=== PATIENT | male | born 1980 | race Caucasian/White ===

== ENCOUNTER 2018-01-08 09:35 | Emergency (ER) | payer SELFPAY ==
[2014-06-18 15:09] VITALS: Wt 67.1 kg
[~2018-01-08 09:35] MED LIST: AMPH30TA10 PO; CLIN300C99 PO; CLON-327 PO; FOLI-68 PO; LOR1 PO; MULT-1379 PO; NICO2LOZ70 BC; OXYGENHOME INH; PHEN100C82 PO; POTA20TA85 PO; THIA100T62 PO
[2018-01-08 09:40] VITALS: BP 123/95
[2018-01-08] MEDS ORDERED: APAP/HYDROCODONE 325/7.5 TAB PO ONE (10:10)
[2018-01-08] MEDS ORDERED: ACETAMINOPHEN 325 MG TAB PO ONE (10:10)
--- NOTE | 2018-01-08 10:11 | ER Report ---
History and Physical Time Seen By MD: 10:00 Hx. of Stated Complaint: LEFT WRIST PAIN AFTER SLIPPING ON ICE YESTERDAY HPI/ROS CHIEF COMPLAINT: Left hand injury HISTORY OF PRESENT ILLNESS: Just prior to arrival patient was walking and slipped on ice falling on his nondominant left hand. He developed left wrist pain and swelling. He denies left elbow pain shoulder pain hitting his head or any other injury or pain. Pain is moderate with swallowing at posterior left wrist. No prior injuries, medical problems, allergies. Patient vapes daily. REVIEW OF SYSTEMS: Constitutional: No fever, no chills. Eyes: No discharge. ENT: No sore throat. Cardiovascular: No chest pain, no palpitations. Respiratory: No cough, no shortness of breath. Gastrointestinal: No abdominal pain, no vomiting. Genitourinary: No hematuria. Musculoskeletal: No back pain. Skin: No rashes. Neurological: No headache. Remainder of the 14 system rev: Yes Allergies: Coded Allergies: No Known Drug Allergies (Unverified , 08/24/16) Home Meds Active Scripts Hydrocodone Bit/Acetaminophen (NORCO 5-325 TABLET) 1 Each Tablet, 1 EACH PO Q6H for Nausea, #15 TAB Prov:GIACOMO REED MD 01/08/18 Discontinued Reported Medications Nicotine Polacrilex (NICORETTE) 2 Mg Lozenge, 2 MG BC Q1-2H PRN for NICOTINE REPLACEMENT, LOZENGE 08/28/16 Thiamine Hcl (THIAMINE HCL) 100 Mg Tablet, 100 MG PO QDAY 08/28/16 Multivits,Th W-Fe,Other Min (THERA-M) 1 Each Tablet, 1 EACH PO QDAY 08/28/16 Folic Acid (FOLIC ACID) 1 Mg Tablet, 1 MG PO QDAY, TAB 08/28/16 Hx Smoking: Yes Smoking Status: Current: Every Day Smoker Exposure to Second Hand Smoke?: Yes Hx Substance Use Disorder: Yes Hx Alcohol Use: Yes Constitutional Vital Sign - Last 24 Hours 01/08/18 09:40 Temp 99.0 Pulse 96 Resp 20 B/P (MAP) 123/95 Pulse Ox 95 O2 Delivery Room Air Physical Exam General Appearance: The patient is alert, has no immediate need for airway protection and no current signs of toxicity. [ ] Eyes: Pupils equal and round no injection. Respiratory: Chest is non tender, lungs are clear to auscultation. Cardiac: regular rate and rhythm Musculoskeletal: Extremities have full range of motion and are non tender. with exception of left wrist; posterior edema and ttp at distal medial l wrist. NVID, ROM thumb diminished due to pain; from fingers. Skin: No rashes or lesions. DIFFERENTIAL DIAGNOSIS: After history and physical exam differential diagnosis was considered for wrist fracture, scaphoid fracture, scapholunate dissociation, other proximal or distal injury Medical Decision Making ED Course/Re-evaluation ED Course Pt fell on non dominant left hand when slipping on ice. Xray with comminuted intraarticular l dist rad fx but with min displacement. I performed hematoma block with 1cc blood return and sig relief. Sugar tong placed; I evaluated; good positioning. Consulted Dr. Hartmann for f/u. D/c with SRP's. Procedure Procedure: Splint placement. A sugar tong splint was applied to left forearm. After application of the splint I returned and re-examined the patient. The splint was adequately immobilizing the joint and distal to the splint the patient's circulation and sensation was intact. Procedure: Arthrocentesis. After verbal informed consent from patient explaining the risks including infection and bleeding a hematoma block was performed at left distal radius. The arthrocentesis was performed after the patient was prepped and draped in the usual fashion. The joint was anesthetized with 1% lidocaine. Approximately 1cc of blood fluid was obtained. There were no complications. The procedure was performed by myself. Decision to Disposition Date: Jan 08, 2018 Decision to Disposition Time: 11:25 Depart Departure Latest Vital Signs Vital Signs Date Time Temp Pulse Resp B/P (MAP) Pulse Ox O2 Delivery O2 Flow Rate FiO2 01/08/18 09:40 99.0 96 20 123/95 95 Room Air Impression: Primary Impression: Distal radius fracture, left Additional Impression: Fracture of ulnar styloid Condition: Improved Disposition: HOME OR SELF-CARE Referrals: BC HARTMANN MD 2 Days call today to arrange follow up with orthopedics on saturday for re-evaluation New Scripts Hydrocodone Bit/Acetaminophen (NORCO 5-325 TABLET) 1 Each Tablet 1 EACH PO Q6H for Nausea, #15 TAB Prov: GIACOMO REED MD 01/08/18 Patient Instructions: Wrist Fracture in Adults (ED) Additional Instructions: Return for uncontrolled pain, new numbness, concerning swelling, or any concerns. Follow up as we discussed. Problem Qualifiers Primary Impression: Distal radius fracture, left Encounter type: initial encounter Fracture type: closed Fracture morphology: other intra-articular Qualified Codes: S52.572A - Other intraarticular fracture of lower end of left radius, initial encounter for closed fracture Additional Impression: Fracture of ulnar styloid Encounter type: initial encounter Fracture type: closed Fracture alignment: nondisplaced Laterality: left Qualified Codes: S52.615A - Nondisplaced fracture of left ulna styloid process, initial encounter for closed fracture GIACOMO REED MD Jan 08, 2018 10:11
--- NOTE | 2018-01-08 10:20 | RADIOLOGY IMAGING REPORT ---
FACILITY: [facility] PATIENT NAME: Jordan Henderson : 1980 MR: [id number] V: [id number] EXAM DATE: ORDERING PHYSICIAN: GIACOMO REED TECHNOLOGIST: Location: [facility] - [place] Patient: Jordan Henderson : 1980 Visit/Account:[id number] Date of Sevice: 01/08/2018 Exam type: WRIST LEFT MIN 3 VIEW History: Fell on ice this morning, left wrist pain, worse along lateral aspect near thumb Comparison: None. Findings: There is a tiny avulsion fracture fragment of the ulnar styloid. Also noted is a slightly comminuted intra-articular fracture through the distal left radius with slight dorsal displacement of the dorsa l fracture fragment. There is extensive soft tissue swelling about the left wrist IMPRESSION: 1. Tiny avulsion fracture fragment of the left ulnar styloid Slightly comminuted intra-articular fracture to the distal left radius with slight dorsal displacemen t of the dorsal fracture fragment Report Dictated By: Samantha Robledo MD at 01/08/2018 10:14 AM Report E-Signed By: Samantha Robledo MD at 01/08/2018 10:16 AM WSN:[id number]
[2018-01-08] MEDS ORDERED: HYDR-653 PO (11:01)
== END 2018-01-08 11:40 | disposition home or self-care (01) ==
LOC: ER 09:39
DX: S52.572A Other intraarticular fracture of lower end of left radius, initial encounter for closed fracture (principal); S52.615A Nondisplaced fracture of left ulna styloid process, initial encounter for closed fracture; W00.0XXA Fall on same level due to ice and snow, initial encounter
CPT/HCPCS: 99284; A4565

== ENCOUNTER 2018-06-01 17:52 | Inpatient (IN) | payer SELFPAY ==
[~2018-06-01] VITALS: Ht 165.1 cm; Wt 67.6 kg
[~2018-06-01 17:52] MED LIST changes: +HYDR-653 PO
[2018-06-01] MEDS ORDERED: THIAMINE HCL(*) 200 MG/2 ML IN 100 MG, FOLIC ACID(*) 50 MG/10 ML INJ 1 MG, MULTIVITAMIN... IV ONE (18:23)
--- NOTE | 2018-06-01 18:23 | ER Report ---
History and Physical Time Seen By MD: 18:19 HPI/ROS CHIEF COMPLAINT: Alcohol dependence HISTORY OF PRESENT ILLNESS: 37-year-old male presents ambulatory to the ER with his significant other, requesting alcohol detox. Patient reports returning from a in [place], where his significant other's father of alcohol related disease. Patient is very concerned that he discovered from alcoholism. If he does not stop drinking soon. He's requesting medical detox. Patient admits to eye opening alcohol and blackouts. Review of patient's previous ER records shows 2 previous visits with significantly high alcohol levels. Patient's been admitted to [facility] on multiple previous occasions for detox REVIEW OF SYSTEMS: Respiratory: No cough, no dyspnea. Cardiovascular: No chest pain, no palpitations. Gastrointestinal: No vomiting, no abdominal pain. Musculoskeletal: No back pain. Allergies: Coded Allergies: No Known Drug Allergies (Unverified , 06/01/18) Home Meds Discontinued Scripts Hydrocodone Bit/Acetaminophen (NORCO 5-325 TABLET) 1 Each Tablet, 1 EACH PO Q6H for Nausea, #15 TAB Prov:GIACOMO REED MD 01/08/18 Reviewed Nurses Notes: Yes Old Medical Records Reviewed: Yes Hx Smoking: Yes Smoking Status: Current: Every Day Smoker Exposure to Second Hand Smoke?: Yes Hx Substance Use Disorder: Yes Hx Alcohol Use: Yes Constitutional Vital Sign - Last 24 Hours 06/01/18 06/01/18 06/01/18 06/01/18 18:17 18:20 18:22 18:52 Temp 98.7 Pulse 109 106 99 Resp 18 B/P (MAP) 127/71 (89) 127/71 Pulse Ox 90 95 89 O2 Delivery Room Air 06/01/18 06/01/18 06/01/18 06/01/18 18:59 19:00 19:22 19:27 Pulse 103 100 B/P (MAP) 107/81 (90) 98/72 (81) Pulse Ox 91 88 06/01/18 06/01/18 06/01/18 06/01/18 19:30 19:57 20:00 20:05 Pulse 106 115 B/P (MAP) 114/68 (83) 120/80 (93) Pulse Ox 91 90 Physical Exam General Appearance: The patient is alert, has no immediate need for airway protection and no current signs of toxicity. Eyes: Pupils equal and round no injection. Respiratory: Chest is non tender, lungs are clear to auscultation. Cardiac: regular rate and rhythm Gastrointestinal: Abdomen is soft and non tender, no masses, bowel sounds normal. Musculoskeletal: Neck: Neck is supple and non tender. Extremities have full range of motion and are non tender. Skin: No rashes or lesions. DIFFERENTIAL DIAGNOSIS: After history and physical exam differential diagnosis was considered for depression including functional and major depression, situational depression, medication side effect, drugs and alcohol abuse/alcohol dependence. Medical Decision Making Data Points Result Diagram: 06/01/18 1829 06/01/18 1829 Laboratory Hematology Test 06/01/18 18:29 06/01/18 20:28 Red Blood Count 4.44 M/uL (4.00-5.60) Mean Corpuscular Volume 105.4 fL (80.0-96.0) Mean Corpuscular Hemoglobin 35.5 pg (26.0-33.0) Mean Corpuscular Hemoglobin Concent 33.7 g/dL (32.0-36.0) Red Cell Distribution Width 15.0 % (11.5-14.5) Mean Platelet Volume 7.1 fL (7.2-11.1) Neutrophils (%) (Auto) 55.8 % (39.4-72.5) Lymphocytes (%) (Auto) 33.7 % (17.6-49.6) Monocytes (%) (Auto) 8.9 % (4.1-12.4) Eosinophils (%) (Auto) 0.4 % (0.4-6.7) Basophils (%) (Auto) 1.2 % (0.3-1.4) Nucleated RBC Relative Count (auto) 0.0 /100WBC Neutrophils # (Auto) 3.7 K/uL (2.0-7.4) Lymphocytes # (Auto) 2.2 K/uL (1.3-3.6) Monocytes # (Auto) 0.6 K/uL (0.3-1.0) Eosinophils # (Auto) 0.0 K/uL (0.0-0.5) Basophils # (Auto) 0.1 K/uL (0.0-0.1) Nucleated RBC Absolute Count (auto) 0.00 K/uL Sodium Level 142 mmol/L (137-145) Potassium Level 4.1 mmol/L (3.5-5.0) Chloride Level 101 mmol/L (98-107) Carbon Dioxide Level 25 mmol/L (22-30) Blood Urea Nitrogen 6 mg/dl (9-21) Creatinine 0.80 mg/dl (0.66-1.25) Glomerular Filtration Rate Calc > 60.0 Random Glucose 94 mg/dl (75-110) Calcium Level 8.9 mg/dl (8.4-10.2) Magnesium Level 2.0 mg/dl (1.7-2.2) Total Bilirubin 0.7 mg/dl (0.2-1.3) Aspartate Amino Transf (AST/SGOT) 268 U/L (0-35) Alanine Aminotransferase (ALT/SGPT) 99 U/L (0-56) Alkaline Phosphatase 137 U/L (0-126) Total Protein 8.7 g/dl (6.3-8.2) Albumin 4.9 g/dl (3.5-5.0) Salicylates Level < 10 mg/L Salicylate Last Dose Date unk Acetaminophen Level < 10 ug/ml Serum Alcohol 525 mg/dl Urine Color Yellow Urine Clarity Clear Urine pH 6.0 pH (4.8-9.5) Urine Specific [place] 1.011 Urine Protein 100 mg/dL (NEGATIVE) Urine Glucose (UA) Negative mg/dL (NEGATIVE) Urine Ketones 20 mg/dL (NEGATIVE) Urine Blood Small (NEGATIVE) Urine Nitrite Negative (NEGATIVE) Urine Bilirubin Negative (NEGATIVE) Urine Urobilinogen 2.0 mg/dL (0.2-1.9) Urine Leukocyte Esterase Negative (NEGATIVE) Urine RBC <1 /HPF (0-2/HPF) Urine WBC 3 /HPF (0-5/HPF) Urine Squamous Epithelial Cells Many /LPF (</=FEW) Urine Bacteria Negative /HPF (NONE-FEW) Urine Mucus Few /HPF (NONE-FEW) Urine Opiates Screen Negative Urine Barbiturates Screen Negative Ur Tricyclic Antidepressants Screen Negative Urine Phencyclidine Screen Negative Urine Amphetamines Screen Negative Urine Benzodiazepines Screen Negative Urine Cocaine Screen Negative Urine Cannabinoids Screen Negative Chemistry Test 06/01/18 18:29 06/01/18 20:28 White Blood Count 6.6 k/uL (4.5-11.0) Red Blood Count 4.44 M/uL (4.00-5.60) Hemoglobin 15.8 g/dL (14.0-18.0) Hematocrit 46.7 % (42.0-52.0) Mean Corpuscular Volume 105.4 fL (80.0-96.0) Mean Corpuscular Hemoglobin 35.5 pg (26.0-33.0) Mean Corpuscular Hemoglobin Concent 33.7 g/dL (32.0-36.0) Red Cell Distribution Width 15.0 % (11.5-14.5) Platelet Count 151 K/uL (150-450) Mean Platelet Volume 7.1 fL (7.2-11.1) Neutrophils (%) (Auto) 55.8 % (39.4-72.5) Lymphocytes (%) (Auto) 33.7 % (17.6-49.6) Monocytes (%) (Auto) 8.9 % (4.1-12.4) Eosinophils (%) (Auto) 0.4 % (0.4-6.7) Basophils (%) (Auto) 1.2 % (0.3-1.4) Nucleated RBC Relative Count (auto) 0.0 /100WBC Neutrophils # (Auto) 3.7 K/uL (2.0-7.4) Lymphocytes # (Auto) 2.2 K/uL (1.3-3.6) Monocytes # (Auto) 0.6 K/uL (0.3-1.0) Eosinophils # (Auto) 0.0 K/uL (0.0-0.5) Basophils # (Auto) 0.1 K/uL (0.0-0.1) Nucleated RBC Absolute Count (auto) 0.00 K/uL Glomerular Filtration Rate Calc > 60.0 Calcium Level 8.9 mg/dl (8.4-10.2) Magnesium Level 2.0 mg/dl (1.7-2.2) Total Bilirubin 0.7 mg/dl (0.2-1.3) Aspartate Amino Transf (AST/SGOT) 268 U/L (0-35) Alanine Aminotransferase (ALT/SGPT) 99 U/L (0-56) Alkaline Phosphatase 137 U/L (0-126) Total Protein 8.7 g/dl (6.3-8.2) Albumin 4.9 g/dl (3.5-5.0) Salicylates Level < 10 mg/L Salicylate Last Dose Date unk Acetaminophen Level < 10 ug/ml Serum Alcohol 525 mg/dl Urine Color Yellow Urine Clarity Clear Urine pH 6.0 pH (4.8-9.5) Urine Specific [place] 1.011 Urine Protein 100 mg/dL (NEGATIVE) Urine Glucose (UA) Negative mg/dL (NEGATIVE) Urine Ketones 20 mg/dL (NEGATIVE) Urine Blood Small (NEGATIVE) Urine Nitrite Negative (NEGATIVE) Urine Bilirubin Negative (NEGATIVE) Urine Urobilinogen 2.0 mg/dL (0.2-1.9) Urine Leukocyte Esterase Negative (NEGATIVE) Urine RBC <1 /HPF (0-2/HPF) Urine WBC 3 /HPF (0-5/HPF) Urine Squamous Epithelial Cells Many /LPF (</=FEW) Urine Bacteria Negative /HPF (NONE-FEW) Urine Mucus Few /HPF (NONE-FEW) Urine Opiates Screen Negative Urine Barbiturates Screen Negative Ur Tricyclic Antidepressants Screen Negative Urine Phencyclidine Screen Negative Urine Amphetamines Screen Negative Urine Benzodiazepines Screen Negative Urine Cocaine Screen Negative Urine Cannabinoids Screen Negative Toxicology Test 06/01/18 18:29 06/01/18 20:28 Salicylates Level < 10 mg/L Salicylate Last Dose Date unk Acetaminophen Level < 10 ug/ml Serum Alcohol 525 mg/dl Urine Opiates Screen Negative Urine Barbiturates Screen Negative Ur Tricyclic Antidepressants Screen Negative Urine Phencyclidine Screen Negative Urine Amphetamines Screen Negative Urine Benzodiazepines Screen Negative Urine Cocaine Screen Negative Urine Cannabinoids Screen Negative Urinalysis Test 06/01/18 20:28 Urine Color Yellow Urine Clarity Clear Urine pH 6.0 pH (4.8-9.5) Urine Specific [place] 1.011 Urine Protein 100 mg/dL (NEGATIVE) Urine Glucose (UA) Negative mg/dL (NEGATIVE) Urine Ketones 20 mg/dL (NEGATIVE) Urine Blood Small (NEGATIVE) Urine Nitrite Negative (NEGATIVE) Urine Bilirubin Negative (NEGATIVE) Urine Urobilinogen 2.0 mg/dL (0.2-1.9) Urine Leukocyte Esterase Negative (NEGATIVE) Urine RBC <1 /HPF (0-2/HPF) Urine WBC 3 /HPF (0-5/HPF) Urine Squamous Epithelial Cells Many /LPF (</=FEW) Urine Bacteria Negative /HPF (NONE-FEW) Urine Mucus Few /HPF (NONE-FEW) ED Course/Re-evaluation Clinical Indication for ER IV: Hydration, IV Access ED Course Patient was admitted to an examination room. H&P was done. The differential diagnosis was considered. Patient with significantly high alcohol 525. He has elevated MCV and mild elevation of his LFTs. On examination of his abdomen. There is trace hepatomegaly. Is no ascites. Patient is treated with IV banana bag. 06/01/2018 7:36:38 pm daya with Bonita Hernández nurse practitioner a behavioral health service, she advises patient be admitted to medical service with such a high blood alcohol level. 06/01/2018 8:58:57 pm is discussed with Dr. Ephraim Aguilar hospitalist on-call, who accepts the patient for medical detox Decision to Disposition Date: Jun 01, 2018 Decision to Disposition Time: 19:36 Depart Departure Latest Vital Signs Vital Signs Date Time Temp Pulse Resp B/P (MAP) Pulse Ox O2 Delivery O2 Flow Rate FiO2 06/01/18 20:05 115 90 06/01/18 20:00 120/80 (93) 06/01/18 18:20 98.7 18 Room Air Impression: Primary Impression: Alcohol dependence Additional Impressions: Alcoholic hepatitis Elevated MCV Condition: Improved Disposition: Admitted from ER New Scripts No Active Prescriptions or Reported Meds Problem Qualifiers Primary Impression: Alcohol dependence Substance use status: uncomplicated Qualified Codes: F10.20 - Alcohol dependence, uncomplicated Additional Impressions: Alcoholic hepatitis Ascites presence: unspecified Qualified Codes: K70.10 - Alcoholic hepatitis without ascites ZACH REYES DO Jun 01, 2018 18:23
[2018-06-01 18:37] LABS: PLATELET COUNT, AUTOMATED 151 K/uL (150-450)
[2018-06-01] MEDS ORDERED: NS(*) 0.9% 1000 ML BAG 1,000 ML IV ONE (20:15)
[2018-06-01] MEDS ORDERED: DIAZEPAM 10 MG TAB PO PRN (22:00)
[2018-06-01] MEDS ORDERED: INFLUENZA VIRUS VAC 0.5ML SYR IM ONLY ONE (22:00)
[2018-06-01 22:20] VITALS: BP 127/78
--- NOTE | 2018-06-01 22:39 | History & Physical ---
History of Present Illness Chief Complaint "I would like to detox" History of Present Illness 37yo male with PMHx significant for chronic alcoholism. He has been drinking hard liquor ("a pint or more" everyday) for several years. He has gone thro ugh/detox/withdrawal on at least three occasions in the past few years. He has had seizures at least three times as well. He states he is now committed to remain abstinent after watching his [id number] recently due to substance abuse. He denies any other illicit drugs. He does "vape" every day. His last drink of alcohol was "around 1:00 today". His BAL was 525 in the ER. The rest of his drug screen was negative. He was recommended for admission. History Problems: (1) Alcohol abuse Status: Chronic (2) Seizure Status: Acute (3) Alcoholic hepatitis Status: Chronic (4) History of oral surgery Status: Chronic (5) Distal radius fracture, left Status: Resolved (6) Fracture of ulnar styloid Status: Resolved Home Meds Discontinued Scripts Hydrocodone Bit/Acetaminophen (NORCO 5-325 TABLET) 1 Each Tablet, 1 EACH PO Q6H for Nausea, #15 TAB Prov:GIACOMO REED MD 01/08/18 Allergies: Coded Allergies: No Known Drug Allergies (Unverified , 06/01/18) Other Social/Family Hx He reports being engaged to be . 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 Hx Smoking: Yes Smoking Status: Current: Every Day Smoker Exposure to Second Hand Smoke?: Yes Caffeine Intake: Coffee Caffeine/Cups Per Day: 4-6 Hx Alcohol Use: Yes Hx Substance Use Disorder: Yes Social Drug Use: Former Social Drugs: Marijuana Review of Systems Constitutional: No Fever, No Chills Cardiovascular: No Chest Pain Respiratory: No Shortness of Breath Gastrointestinal: Nausea, Vomiting; No Diarrhea, No Hematemesis, No Hematochezia, No Melena Exam Vital Signs Vital Signs Date Time Temp Pulse Resp B/P (MAP) Pulse Ox O2 Delivery O2 Flow Rate FiO2 06/01/18 20:00 120/80 (93) 06/01/18 19:57 106 91 06/01/18 18:20 98.7 18 Room Air General Appearance: Alert, Awake, Other (no tremor noted at this time) Neuro: No Gross deficits Eyes: PERRLA ENT: Oropharynx Clear (dentition in reasonable repair) Neck: No Masses Cardiovascular: Regular Rate and Rhythm, No Edema, No JVD Respiratory: Clear to Auscultation Chest: No Tenderness GI: Abd Soft and Non-Tender (liver edge palpable several centimeters below costal margin) : No CVA Tenderness Lymph: No Adenopathy Extremities: Warm, Perfused Integumentary: Skin Intact without Lesion / Mass Psych: Alert & Oriented X3 Medical Decision Making Data Points Result Diagram: 06/01/18182806/01/181828 Item Value Date Time Albumin 4.9 g/dl 06/01/181828 Total Protein 8.7 g/dl H 06/01/181828 Alkaline Phosphatase 137 U/L H 06/01/181828 Alanine Aminotransferase (ALT/SGPT) 99 U/L H 06/01/18 182 Aspartate Amino Transf (AST/SGOT) 268 U/L H 06/01/181828 Total Bilirubin 0.7 mg/dl 06/01/18 182 Magnesium Level 2.0 mg/dl 06/01/18 1829 Calcium Level 8.9 mg/dl 06/01/18 182 Urine Mucus Few /HPF 06/01/182027 Urine Bacteria Negative /HPF 06/01/182027 Urine Squamous Epithelial Cells Many /LPF H 06/01/182027 Urine WBC 3 /HPF 06/01/182027 Urine RBC <1 /HPF 06/01/182027 Urine Leukocyte Esterase Negative 06/01/182027 Urine Urobilinogen 2.0 mg/dL 06/01/182027 Urine Bilirubin Negative 06/01/182027 Urine Nitrite Negative 06/01/182027 Urine Blood Small 06/01/182027 Urine Ketones 20 mg/dL H 06/01/182027 Urine Glucose (UA) Negative mg/dL 06/01/182027 Urine Protein 100 mg/dL 06/01/182027 Urine Specific [place] 1.011 06/01/182027 Urine pH 6.0 pH 06/01/182027 Urine Clarity Clear 06/01/182027 Urine Color Yellow 06/01/182027 Assessment and Plan Problems: (1) Alcohol abuse Status: Chronic Assessment & Plan: He has now stated he wishes to stop completely and remain abstinent. Will admit for alcohol detoxification. Place on CIWA protocol and use diazepam as needed for symptoms. Place on seizure precautions as he has had withdrawal seizures in the past. Will also give thiamine and folate supplementation. Watch closely. Will have psychiatry/substance abuse counselor see as well. (2) Alcohol withdrawal seizure Status: Resolved Assessment & Plan: He has had seizures during withdrawal on at least three occasions. Will watch closely/use seizure precautions. Cover with diazepam for withdrawal symptoms as needed. (3) Alcoholic hepatitis Status: Chronic Assessment & Plan: He has had persistent elevation of his LFTs for several years most likely due to excessive alcohol use. Will monitor. Venous Thromboembolism Antithrombotics Is Pt On Any Antithrombotics?: Yes Exam Sepsis Risk: No Definite Risk Problem Qualifiers (1) Alcoholic hepatitis: Ascites presence: unspecified Qualified Codes: K70.10 - Alcoholic hepatitis without ascites LORENA ANDERSEN MD Jun 01, 2018 22:39
[2018-06-02] VITALS (11 sets, daily range): BP systolic 90–129; BP diastolic 69–96; Ht 165.1 cm; Wt 67.6 kg
[2018-06-02] MEDS ORDERED: MELATONIN 3 MG TAB PO PRN (00:35)
[2018-06-02] MEDS: NS(*) 0.9% 1000 ML BAG 1,000 ML IV PRN ×3 (03:21→23:42)
[2018-06-02 05:28] LABS: PLATELET COUNT, AUTOMATED 115 K/uL (150-450)
[2018-06-02] MEDS: ENOXAPARIN 40 MG/0.4ML SYR SC SCH (08:27)
[2018-06-02] MEDS: FOLIC ACID 1 MG TAB PO SCH (08:27)
[2018-06-02] MEDS: THIAMINE HCL 200 MG/2 ML INJ IVP SCH (08:35)
[2018-06-02] MEDS: DIAZEPAM 10 MG TAB PO PRN ×3 (12:13→18:37)
--- NOTE | 2018-06-02 12:37 | Hospitalist Progress Note ---
Subjective Progress Notes Subjective He was admitted for alcohol withdraw. He feels "shaky". He had no acute events overnight. Patient Complains of: Cardiovascular: No: Chest Pain Respiratory: No: Shortness of Breath Physical Exam Vital Signs Date Time Temp Pulse Resp B/P (MAP) Pulse Ox O2 Delivery O2 Flow Rate FiO2 06/02/18 12:05 99.0 91 18 121/82 (95) 95 Room Air 06/02/18 08:30 0.5 Intake and Output 06/02/18 00:59 Intake Total 1000 ml Balance 1000 ml IV Total 1000 ml General Appearance: Alert, Awake Neuro: Other (tremulous) Cardiovascular: Regular Rate and Rhythm Respiratory: No Respiratory Distress, Clear to Auscultation Psych: Alert & Oriented X3, Appropriate Mood & Affect Result Diagram: 06/02/1851406/02/18514 Assessment and Plan Problems: (1) Alcohol abuse Status: Chronic Assessment & Plan: He has now stated he wishes to stop completely and remain abstinent. Will admit for alcohol detoxification. Place on CIWA protocol and use diazepam as needed for symptoms. Place on seizure precautions as he has had withdrawal seizures in the past. Will also give thiamine and folate supple mentation. Watch closely. Will have psychiatry/substance abuse counselor see as well. (2) Alcohol withdrawal seizure Status: Resolved Assessment & Plan: He has had seizures during withdrawal on at least three occasions. Will watch closely/use seizure precautions. Cover with diazepam for withdrawal symptoms as needed. (3) Alcoholic hepatitis Status: Chronic Assessment & Plan: He has had persistent elevation of his LFTs for several years most likely due to excessive alcohol use. Will monitor. Exam Sepsis Risk: Sepsis Risk Problem Qualifiers (1) Alcoholic hepatitis: Ascites presence: unspecified Qualified Codes: K70.10 - Alcoholic hepatitis without ascites [employer] Jun 02, 2018 12:37
[2018-06-02] MEDS: MELATONIN 3 MG TAB PO PRN (21:31)
[2018-06-03] VITALS (8 sets, daily range): BP systolic 112–125; BP diastolic 87–108
[2018-06-03 05:33] LABS: PLATELET COUNT, AUTOMATED 114 K/uL (150-450)
[2018-06-03] MEDS: DIAZEPAM 10 MG TAB PO PRN ×3 (07:52→19:46)
[2018-06-03] MEDS: ENOXAPARIN 40 MG/0.4ML SYR SC SCH (09:26)
[2018-06-03] MEDS: FOLIC ACID 1 MG TAB PO SCH (09:26)
[2018-06-03] MEDS: THIAMINE HCL 200 MG/2 ML INJ IVP SCH (09:32)
[2018-06-03] MEDS: NS(*) 0.9% 1000 ML BAG 1,000 ML IV PRN ×2 (10:25→21:00)
--- NOTE | 2018-06-03 11:41 | Hospitalist Progress Note ---
Subjective Progress Notes Subjective He was admitted for alcohol withdraw. He reports he feels a little better this morning. He denies nausea. Would like to try to eat food. Patient Complains of: Cardiovascular: No: Chest Pain Respiratory: No: Shortness of Breath Physical Exam Vital Signs Date Time Temp Pulse Resp B/P (MAP) Pulse Ox O2 Delivery O2 Flow Rate FiO2 06/03/18 10:47 93 06/03/18 09:22 98.5 83 16 119/88 (98) Room Air 06/02/18 08:30 0.5 Intake and Output 06/03/18 07:00 Intake Total 2980 ml Output Total 2525 ml Balance 455 ml Intake Oral 1040 ml IV Total 1940 ml Output Urine Total 1925 ml Emesis 600 ml # Voids 5 General Appearance: Alert, Awake, No Acute Distress, Afebrile Neuro: No Gross deficits Cardiovascular: Regular Rate and Rhythm Respiratory: No Respiratory Distress, Clear to Auscultation GI: Soft and Non-Tender Psych: Alert & Oriented X3, Appropriate Mood & Affect Result Diagram: 06/03/1852306/03/18523 Assessment and Plan Problems: (1) Alcohol abuse Status: Chronic Assessment & Plan: He has now stated he wishes to stop completely and remain abstinent. Will admit for alcohol detoxification. Place on CIWA protocol and use diazepam as needed for symptoms. Place on seizure precautions as he has had withdrawal seizures in the past. Will also give thiamine and folate supplementation. Watch closely. Will have psychiatry/substance abuse counselor see as well. (2) Alcohol withdrawal seizure Status: Resolved Assessment & Plan: He has had seizures during withdrawal on at least three occasions. Will watch closely/use seizure precautions. Cover with diazepam for withdrawal symptoms as needed. (3) Alcoholic hepatitis Status: Chronic Assessment & Plan: He has had persistent elevation of his LFTs for several years most likely due to excessive alcohol use. Will monitor. Exam Sepsis Risk: No Definite Risk Problem Qualifiers (1) Alcoholic hepatitis: Ascites presence: unspecified Qualified Codes: K70.10 - Alcoholic hepatitis without ascites VÍCTOR GAGE [employer] Jun 03, 2018 11:40
[2018-06-03] MEDS: MELATONIN 3 MG TAB PO PRN (21:00)
[2018-06-04 00:33] VITALS: BP 112/90
[2018-06-04 04:15] VITALS: BP 128/103
[2018-06-04 06:54] VITALS: BP 109/95
[2018-06-04] MEDS: NS(*) 0.9% 1000 ML BAG 1,000 ML IV PRN (07:24)
[2018-06-04] MEDS: THIAMINE HCL 200 MG/2 ML INJ IVP SCH (09:00)
[2018-06-04] MEDS: FOLIC ACID 1 MG TAB PO SCH (09:00)
[2018-06-04] MEDS: ENOXAPARIN 40 MG/0.4ML SYR SC SCH (09:00)
[2018-06-04] MEDS ORDERED: THIA100T20 PO (10:25)
[2018-06-04] MEDS ORDERED: FOLI-68 PO (10:25)
--- NOTE | 2018-06-04 10:28 | Hospitalist Depart ---
Discharge Summary Reason for Hosp/Final Diag: (1) Alcohol abuse Status: Chronic Hospital Course & Plan: He has now stated he wishes to stop completely and remain abstinent. He was admitted for alcohol detoxification. He was placed on CIWA protocol and used diazepam as needed for symptoms. He was placed on seizure precautions as he has had withdrawal seizures in the past. He was given thiamine and folate supplementation. He wants to leave at this time. He does not want to be admitted to [facility]. He did speak with [facility] service 06/03. He has references for outpatient resources. He will continue thiamine and folic acid. (2) Alcohol withdrawal seizure Status: Resolved Hospital Course & Plan: He has had seizures during withdrawal on at least three occasions. He did not have seizure during admission. (3) Alcoholic hepatitis Status: Chronic Hospital Course & Plan: He has had persistent elevation of his LFTs for several years most likely due to excessive alcohol use. Departure Latest Vital Signs Vital Signs 06/04/18 06/04/18 06/04/18 06:54 07:05 07:26 Temp 97.8 Pulse 64 Resp 20 B/P (MAP) 109/95 (100) Pulse Ox 94 O2 Delivery Room Air Weight (Pounds): 149 Result Diagram: 06/03/1852306/03/18523 Condition: Improved Discharge: Home, Self Care Discharge Instructions Home Meds Active Scripts Thiamine Hcl (VITAMIN B-1) 100 Mg Tablet, 100 MG PO QDAY, #30 TAB Prov:VÍCTOR GAGEP 06/04/18 Folic Acid (FOLIC ACID) 1 Mg Tablet, 1 MG PO QDAY, #30 TAB Prov:VÍCTOR GAGE [facility] 06/04/18 Discontinued Scripts Hydrocodone Bit/Acetaminophen (NORCO 5-325 TABLET) 1 Each Tablet, 1 EACH PO Q6H for Nausea, #15 TAB Prov:GIACOMO REED MD 01/08/18 Diet: Regular Activity: As Tolerated Special Instructions: Abstain from alcohol. Take Folic Acid and Thiamine supplements. Follow up with outpatient resource for alcohol cessation. Venous Thromboembolism Antithrombotics Is Pt On Any Antithrombotics?: Yes Problem Qualifiers (1) Alcoholic hepatitis: Ascites presence: unspecified Qualified Codes: K70.10 - Alcoholic hepatitis without ascites VÍCTOR GAGE [facility] Jun 04, 2018 10:28
[2018-06-04 11:25] VITALS: BP 122/82
[2018-06-05] MEDS ORDERED: THIAMINE HCL 100 MG TAB PO SCH (09:00)
== END 2018-06-04 13:10 | disposition home or self-care (01) | DRG 897 ==
LOC: ER 18:34 → MED 21:14
PROVIDERS: ADMIT Internal Medicine; ATTEND Internal Medicine
DX: F10.230 Alcohol dependence with withdrawal, uncomplicated (principal); K70.10 Alcoholic hepatitis without ascites; F17.210 Nicotine dependence, cigarettes, uncomplicated; Y90.8 Blood alcohol level of 240 mg/100 ml or more
CPT/HCPCS: 36415; 80305; 80320; 80329; 81001; 82040; 82247; 82310; 82374; 82435; 82565; 82947; 83735; 84075; 84132; 84155; 84295; 84443; 84450; 84460; 84520; 85025; 96365; 96366; 99284; J1650; J3411; J3475; J7030

== ENCOUNTER 2018-08-16 23:10 | Emergency (ER) | payer SELFPAY ==
[2018-06-02 16:31] VITALS: Wt 67.1 kg
[~2018-08-16 23:10] MED LIST changes: +THIA100T20 PO
[2018-08-16 23:12] VITALS: BP 128/87
--- NOTE | 2018-08-16 23:13 | ER Report ---
History and Physical Time Seen By MD: 23:11 HPI/ROS CHIEF COMPLAINT: alcohol intoxication, prison clearance HISTORY OF PRESENT ILLNESS: This is a 37 year old male. Intoxicated tonight. Fell and has scrape on left elbow. Had a bloody nose earlier, but none now. Denies any pain. No other medical issues. No shortness of breath. No chest pain. No abdominal pain. Allergies: Coded Allergies: No Known Drug Allergies (Unverified , 08/16/18) Home Meds Discontinued Scripts Thiamine Hcl (VITAMIN B-1) 100 Mg Tablet, 100 MG PO QDAY, #30 TAB Prov:VÍCTOR GAGE [employer] 06/04/18 Folic Acid (FOLIC ACID) 1 Mg Tablet, 1 MG PO QDAY, #30 TAB Prov:VÍCTOR GAGE [facility] 06/04/18 Reviewed Nurses Notes: Yes Hx Smoking: Yes Smoking Status: Current: Every Day Smoker, Former Smoker Exposure to Second Hand Smoke?: Yes Hx Substance Use Disorder: Yes Hx Alcohol Use: Yes Constitutional Vital Sign - Last 24 Hours 08/16/18 23:12 Temp 98.6 Pulse 112 Resp 16 B/P (MAP) 128/87 Pulse Ox 93 O2 Delivery Room Air Physical Exam General Appearance: The patient is alert, has no immediate need for airway protection and no current signs of toxicity. Eyes: Pupils equal and round no injection. ENT: Normal oral mucosa. Moist mucous membranes. Evidence of nose bleed recently, but no active bleeding or hematoma. Neck: Neck is supple and non tender. Respiratory: Chest is non tender, lungs are clear to auscultation. Cardiac: regular rate and rhythm Gastrointestinal: Abdomen is soft and non tender, no masses, bowel sounds normal. Musculoskeletal: Extremities have full range of motion. Skin: No rashes or lesions. DIFFERENTIAL DIAGNOSIS: After history and physical exam differential diagnosis was considered for alcohol intoxications, scrape on elbow. Medical Decision Making ED Course/Re-evaluation ED Course Reviewed and no acute problems other than the abrasion. Discharged with police to prison. Decision to Disposition Date: Aug 16, 2018 Decision to Disposition Time: 23:14 Depart Departure Latest Vital Signs Vital Signs Date Time Temp Pulse Resp B/P (MAP) Pulse Ox O2 Delivery O2 Flow Rate FiO2 08/16/18 23:12 98.6 112 16 128/87 93 Room Air Impression: Primary Impression: Alcohol intoxication Condition: Improved Disposition: [facility] TO CUSTODIAL/CORRECTIONAL F New Scripts No Active Prescriptions or Reported Meds Patient Instructions: Alcohol Intoxication (ED) Problem Qualifiers Primary Impression: Alcohol intoxication Complication of substance-induced condition: uncomplicated Qualified Codes: F10.920 - Alcohol use, unspecified with intoxication, uncomplicated BENNETT OAKLEY MD Aug 16, 2018 23:13
[2018-08-16] MEDS ORDERED: DIPHTH/TETANUS/ACEL. PERTUSSIS IM ONLY ONE (23:20)
== END 2018-08-16 23:29 ==
LOC: ER 23:17
DX: F10.920 Alcohol use, unspecified with intoxication, uncomplicated (principal)
CPT/HCPCS: 99281

== ENCOUNTER 2018-08-23 15:30 | Inpatient (IN) | payer SELFPAY ==
[2018-06-02 16:31] VITALS: Ht 167.6 cm; Wt 63.0 kg
[~2018-08-23] VITALS: Ht 167.6 cm; Wt 63.0 kg
[~2018-08-23 15:30] MED LIST changes: -MULT1CAP59 PO; -NIC10R INH; -NICOTROL CARTRIDGE PO; -VITA-175 PO
[2018-08-23] MEDS ORDERED: ceFAZolin 1 GM VIAL IVP ONE (15:50)
[2018-08-23] MEDS ORDERED: DIPHTH/TETANUS/ACEL. PERTUSSIS IM ONLY ONE (15:50)
[2018-08-23] MEDS ORDERED: IOPAMIDOL 76% 100 ML INFUS BTL 100 ML ONE (15:59)
--- NOTE | 2018-08-23 16:08 | ER Report ---
History and Physical Time Seen By MD: 15:40 Hx. of Stated Complaint: PATIENT IS INTOXICATED AND HAS A CONTUSION THAT IS INFECTED IN THE LEFT EYE. MOTHER CALLED EMS BECAUSE SHE WAS WORRIED ABOUT TAKING CARE OF HIM. (RAKESH KESSLER DO) HPI/ROS CHIEF COMPLAINT: fall, infected left eye, intoxicated HISTORY OF PRESENT ILLNESS: Pt brought in by his mother. Pt is intoxicated. Pt states he drank "yesterday". Mom states he has been drinking ever since his father introduced him to alcohol at age of 11. Mom is concerned about his drinking and would like him to get help. PT denies a problem with alcohol. Pt states he tripped yesterday and hit his left eye. PT denies any pain in the eye but had a scratch above the eye and now the skin around his eye is red and eye has purulant material keeping it closed. Pt is able to open his eye when he cleans off the material. pt denies any change in his vision. Pt is wearing a contact in the affected eye. PT denies headache. PT denies fever. PT denies neck pain. Pt states "i am just here for my eye' REVIEW OF SYSTEMS: Constitutional: No fever, no chills. Eyes: + left eye discharge. ENT: No sore throat. Cardiovascular: No chest pain, no palpitations. Respiratory: No cough, no shortness of breath. Gastrointestinal: No abdominal pain, no vomiting. Genitourinary: No hematuria. Musculoskeletal: No back pain. Skin: + abrasion above left eye, + erythema around left eye Neurological: No headache. (RAKESH KESSLER DO) Allergies: Coded Allergies: No Known Drug Allergies (Unverified , 08/16/18) Home Meds No Active Prescriptions or Reported Meds Past Medical/Surgical History Pmhx: alcoholic, ? liver ds (per mom) Pshx: denies (RAKESH KESSLER DO) Reviewed Nurses Notes: Yes Old Medical Records Reviewed: Yes (RAKESH KESSLER DO) Hx Smoking: Yes Smoking Status: Current: Every Day Smoker, Former Smoker Exposure to Second Hand Smoke?: Yes Hx Substance Use Disorder: Yes Hx Alcohol Use: Yes (RAKESH KESSLER DO) Constitutional Vital Sign - Last 24 Hours 08/23/18 08/23/18 08/23/18 08/23/18 15:33 15:33 15:45 16:00 Pulse 97 ??? B/P (MAP) 120/87 (98) 119/85 (96) Pulse Ox 87 O2 Delivery Room Air 08/23/18 08/23/18 08/23/18 08/23/18 16:15 16:30 16:45 17:00 Pulse 98 87 ??? 76 B/P (MAP) 101/78 (86) ???/??? (1665) Pulse Ox 92 92 94 08/23/18 08/23/18 17:15 17:20 Pulse 85 90 Pulse Ox 88 90 (ZACH REYES DO) Physical Exam General Appearance: The patient is alert, has no immediate need for airway protection and no signs of toxicity. Eyes: Pupils equal and round no pallor or injection, EOMI, + yellow drainage from left eye with surrounding erythema of both eyelids and surrounding skin ENT: no pharyngeal erythema or exudates, Mucous membranes are moist, TM are nl b/l Respiratory: There are no retractions, lungs are clear to auscultation. Cardiovascular: Regular rate and rhythm. pulses are equal and symmetrical Gastrointestinal: Abdomen is soft and non tender, no masses, bowel sounds normal, no guarding, no rigidity or rebound Neurological: Cranial nerves II-XII grossly intact, no sensory or motor loss Skin: Warm and dry, + abrasion above left eyebrow. Musculoskeletal: Neck is supple non tender, no vertebral tenderness Extremities are nontender, nonswollen and have full range of motion. DIFFERENTIAL DIAGNOSIS: After history and physical exam differential diagnosis was considered for acute intoxication. Periorbital cellulitis, orbital abscess, electrolyte abnormality (RAKESH KESSLER V DO) Medical Decision Making Data Points Result Diagram: 08/23/18 1551 08/23/18 1551 Laboratory Hematology Test 08/23/18 15:51 Red Blood Count 4.46 M/uL (4.00-5.60) Mean Corpuscular Volume 100.3 fL (80.0-96.0) Mean Corpuscular Hemoglobin 34.7 pg (26.0-33.0) Mean Corpuscular Hemoglobin Concent 34.6 g/dL (32.0-36.0) Red Cell Distribution Width 14.8 % (11.5-14.5) Mean Platelet Volume 7.8 fL (7.2-11.1) Neutrophils (%) (Auto) 49.8 % (39.4-72.5) Lymphocytes (%) (Auto) 40.4 % (17.6-49.6) Monocytes (%) (Auto) 7.8 % (4.1-12.4) Eosinophils (%) (Auto) 0.7 % (0.4-6.7) Basophils (%) (Auto) 1.3 % (0.3-1.4) Nucleated RBC Relative Count (auto) 0.1 /100WBC Neutrophils # (Auto) 2.2 K/uL (2.0-7.4) Lymphocytes # (Auto) 1.8 K/uL (1.3-3.6) Monocytes # (Auto) 0.3 K/uL (0.3-1.0) Eosinophils # (Auto) 0.0 K/uL (0.0-0.5) Basophils # (Auto) 0.1 K/uL (0.0-0.1) Nucleated RBC Absolute Count (auto) 0.00 K/uL Sodium Level 145 mmol/L (137-145) Potassium Level 4.2 mmol/L (3.5-5.0) Chloride Level 102 mmol/L (98-107) Carbon Dioxide Level 23 mmol/L (22-30) Blood Urea Nitrogen 10 mg/dl (9-21) Creatinine 0.80 mg/dl (0.66-1.25) Glomerular Filtration Rate Calc > 60.0 Random Glucose 101 mg/dl (75-110) Calcium Level 8.4 mg/dl (8.4-10.2) Magnesium Level 2.1 mg/dl (1.7-2.2) Total Bilirubin 0.6 mg/dl (0.2-1.3) Aspartate Amino Transf (AST/SGOT) 222 U/L (0-35) Alanine Aminotransferase (ALT/SGPT) 120 U/L (0-56) Alkaline Phosphatase 90 U/L (0-126) Total Creatine Kinase 300 U/L (55-170) Total Protein 7.8 g/dl (6.3-8.2) Albumin 4.4 g/dl (3.5-5.0) Salicylates Level < 10 mg/L Salicylate Last Dose Date unknown Acetaminophen Level < 10 ug/ml Serum Alcohol 484 mg/dl Chemistry Test 08/23/18 15:51 White Blood Count 4.4 k/uL (4.5-11.0) Red Blood Count 4.46 M/uL (4.00-5.60) Hemoglobin 15.5 g/dL (14.0-18.0) Hematocrit 44.7 % (42.0-52.0) Mean Corpuscular Volume 100.3 fL (80.0-96.0) Mean Corpuscular Hemoglobin 34.7 pg (26.0-33.0) Mean Corpuscular Hemoglobin Concent 34.6 g/dL (32.0-36.0) Red Cell Distribution Width 14.8 % (11.5-14.5) Platelet Count 107 K/uL (150-450) Mean Platelet Volume 7.8 fL (7.2-11.1) Neutrophils (%) (Auto) 49.8 % (39.4-72.5) Lymphocytes (%) (Auto) 40.4 % (17.6-49.6) Monocytes (%) (Auto) 7.8 % (4.1-12.4) Eosinophils (%) (Auto) 0.7 % (0.4-6.7) Basophils (%) (Auto) 1.3 % (0.3-1.4) Nucleated RBC Relative Count (auto) 0.1 /100WBC Neutrophils # (Auto) 2.2 K/uL (2.0-7.4) Lymphocytes # (Auto) 1.8 K/uL (1.3-3.6) Monocytes # (Auto) 0.3 K/uL (0.3-1.0) Eosinophils # (Auto) 0.0 K/uL (0.0-0.5) Basophils # (Auto) 0.1 K/uL (0.0-0.1) Nucleated RBC Absolute Count (auto) 0.00 K/uL Glomerular Filtration Rate Calc > 60.0 Calcium Level 8.4 mg/dl (8.4-10.2) Magnesium Level 2.1 mg/dl (1.7-2.2) Total Bilirubin 0.6 mg/dl (0.2-1.3) Aspartate Amino Transf (AST/SGOT) 222 U/L (0-35) Alanine Aminotransferase (ALT/SGPT) 120 U/L (0-56) Alkaline Phosphatase 90 U/L (0-126) Total Creatine Kinase 300 U/L (55-170) Total Protein 7.8 g/dl (6.3-8.2) Albumin 4.4 g/dl (3.5-5.0) Salicylates Level < 10 mg/L Salicylate Last Dose Date unknown Acetaminophen Level < 10 ug/ml Serum Alcohol 484 mg/dl Toxicology Test 08/23/18 15:51 Salicylates Level < 10 mg/L Salicylate Last Dose Date unknown Acetaminophen Level < 10 ug/ml Serum Alcohol 484 mg/dl (ZACH REYES DO) EKG/Imaging Imaging Results: CT scan of the head without contrast was obtained. The results of the study are no acute traumatic findings. The study was read by the radiologist. I viewed the images myself on the PACS system. Results: CT scan of the orbits with IV contrast was obtained. The results of the study are CT ORBITS W/ CONTRAST COMPARISON: None. HISTORY: cellulitis left eye, hit head;. TECHNIQUE: Postcontrast axial CT of the orbits with coronal and sagittal reformats. One of the following dose optimization techniques was utilized in the performance of this exam: automated exposure control; adjustment of the mA and/or kV according to patient size; or use of iterative reconstruction technique. Specific details can be referenced in the facility's radiology CT exam operational policy. CONTRAST: 75 mL Isovue-370 intravenously. FINDINGS: GLOBES: Unremarkable. No asymmetry or no visible mass. OPTHALMIC VEIN: Negative. OPTIC NERVE: Unremarkable CT appearance. SINUSES: The paranasal sinuses show no significant mucosal thickening or air- fluid levels. No visible fractures. There is minimal mucosal thickening in the right maxillary sinus and there is a mucous retention cyst in the left maxillary sinus. EXTRAOCULAR MUSCLES: Unremarkable. INTRACONAL SPACE: Unremarkable. No visible mass, with normal retrobulbar fat. EXTRACONAL SPACE: Minimal preseptal soft tissue thickening on the left. BONES: No acute orbital or facial bone fractures. Old healed right nasal bone fracture is noted. Temporomandibular joints are appropriately aligned. Mastoid air cells are normally pneumatized. No visible external auditory canal or middle ear fluid. OTHER: Visualized soft tissues of the face are unremarkable. No focal significant nasal cavity abnormality appreciated. IMPRESSION: No acute orbital fractures. Mild left preseptal soft tissue edema. No evidence of orbital fat stranding or globe/orbit injury. The study was read by the radiologist. I viewed the images myself on the PACS system. (ZACH REYES DO) ED Course/Re-evaluation Clinical Indication for ER IV: IV Access ED Course Check labs, IV abx, tetnus, CT head and orbit. 08/23/2018 4:01:[address] of orbits or head due to the cost . "I already had a bill of 60,000$ that I can not pay". I explained to patient and to his mother my concern about possible septal orbital or retrobulbar abscess but pt refusing due to cost. Will hang abx while awaiting labs. 08/23/2018 4:16:58 pm Offered to have patient evaluated by behavioral health for alcohol detox; pt refused. Pt is not suicidal or homicidal. Pt states " i am here for my eye". I explained to pt that he is not allowing me to fully evaluate behind his eye or his head but pt still refusing CT (RAKESH KESSLER DO) ED Course Care was assumed at shift change with diagnostic CT pending. Patient had received Septisol and head tetanus booster. His blood alcohol returned at 484. Patient's requesting medical detox. Patient's CT scans were negative for deep cellulitis. 08/23/2018 7:13:19 pm case discussed with Bonita Hernández nurse practitioner a behavioral health service after reviewing his labs and stuff she advises patient be admitted to the medical side since she's had 3 previous seizures. 08/23/2018 7:23:47 pm is discussed with Dr. LISY Mena hospitalist, who accepts patient for admission for medical detox and treatment of his left orbital cellulitis Decision to Disposition Date: Aug 23, 2018 Decision to Disposition Time: 19:07 (ZACH REYES DO) Depart Departure Latest Vital Signs Vital Signs Date Time Temp Pulse Resp B/P (MAP) Pulse Ox O2 Delivery O2 Flow Rate FiO2 08/23/18 17:20 90 90 08/23/18 17:00 ???/??? (1665) 08/23/18 15:33 Room Air (ZACH REYES DO) Impression: Primary Impression: Alcohol dependence Additional Impressions: Facial laceration Facial abrasion Orbital cellulitis, left Condition: Improved Disposition: Admitted from ER New Scripts No Active Prescriptions or Reported Meds Problem Qualifiers Primary Impression: Alcohol dependence Substance use status: with intoxication Complication of substance-induced condition: uncomplicated Qualified Codes: F10.220 - Alcohol dependence with intoxication, uncomplicated Additional Impressions: Facial laceration Encounter type: initial encounter Qualified Codes: S01.81XA - Laceration without foreign body of other part of head, initial encounter Facial abrasion Encounter type: initial encounter Qualified Codes: S00.81XA - Abrasion of other part of head, initial encounter RAKESH KESSLER V DO Aug 23, 2018 16:08 ZACH REYES DO Aug 23, 2018 19:12
[2018-08-23 16:14] LABS: PLATELET COUNT, AUTOMATED 107 K/uL (150-450)
--- NOTE | 2018-08-23 18:41 | RADIOLOGY IMAGING REPORT ---
FACILITY: [facility] [place] PATIENT NAME: Jordan Henderson : 1980 MR: [id number] V: [id number] EXAM DATE: ORDERING PHYSICIAN: RAKESH KESSLER TECHNOLOGIST: Location: [facility] Patient: Jordan Henderson : 1980 Visit/Account:[id number] Date of Sevice: 08/23/2018 CT BRAIN NO CONTRAST COMPARISON: 11/13/2016 HISTORY: hit head intoxicated. TECHNIQUE: Noncontrast axial CT brain with coronal and sagittal reformats. One of the following dose optimization techniques was utilized in the performance of this exam: automated exposure control; a djustment of the mA and/or kV according to patient size; or use of iterative reconstruction technique . Specific details can be referenced in the facility's radiology CT exam operational policy. CONTRAST: None. CT BRAIN FINDINGS: CSF SPACES: Ventricles, cisterns, and sulci are appropriate for age. No hydrocephalus, extra-axial hemorrhage, or mass. No midline shift. CEREBRUM: No edema, hemorrhage, mass, acute infarction, or significant atrophy. Normal morphology a nd density. CEREBELLUM: No edema, hemorrhage, mass, acute infarction, or significant atrophy. Tonsils are not l ow-lying. BRAINSTEM: No edema, hemorrhage, mass, acute infarction, or significant atrophy. Normal morphology and density. CALVARIUM: No mass or other significant visible lesion. Mastoid air cells are normally pneumatized. SINUSES: Limited views demonstrate no significant mucosal thickening or fluid. Mucous retention cys t in the left maxillary sinus. ORBITS: Limited views are unremarkable. OTHER: Mild frontal soft tissue edema.. IMPRESSION: 1. No acute fracture or acute intracranial hemorrhage. Unremarkable brain. 2. Mild frontal soft tissue edema. Report Dictated By: Benjamin Antoine at 08/23/2018 6:32 PM Report E-Signed By: Benjamin Antoine at 08/23/2018 6:36 PM WSN:[id number]
--- NOTE | 2018-08-23 18:52 | RADIOLOGY IMAGING REPORT ---
FACILITY: [facility] PATIENT NAME: Jordan Henderson : 1980 MR: [id number] V: [id number] EXAM DATE: ORDERING PHYSICIAN: RAKESH KESSLER TECHNOLOGIST: Location: [facility] [place] Patient: Jordan Henderson : 1980 Visit/Account:[id number] Date of Sevice: 08/23/2018 CT ORBITS W/ CONTRAST COMPARISON: None. HISTORY: cellulitis left eye, hit head;. TECHNIQUE: Postcontrast axial CT of the orbits with coronal and sagittal reformats. One of the follow ing dose optimization techniques was utilized in the performance of this exam: automated exposure co ntrol; adjustment of the mA and/or kV according to patient size; or use of iterative reconstruction t echnique. Specific details can be referenced in the facility's radiology CT exam operational policy. CONTRAST: 75 mL Isovue-370 intravenously. FINDINGS: GLOBES: Unremarkable. No asymmetry or no visible mass. OPTHALMIC VEIN: Negative. OPTIC NERVE: Unremarkable CT appearance. SINUSES: The paranasal sinuses show no significant mucosal thickening or air-fluid levels. No visibl e fractures. There is minimal mucosal thickening in the right maxillary sinus and there is a mucous r etention cyst in the left maxillary sinus. EXTRAOCULAR MUSCLES: Unremarkable. INTRACONAL SPACE: Unremarkable. No visible mass, with normal retrobulbar fat. EXTRACONAL SPACE: Minimal preseptal soft tissue thickening on the left. BONES: No acute orbital or facial bone fractures. Old healed right nasal bone fracture is noted. Tem poromandibular joints are appropriately aligned. Mastoid air cells are normally pneumatized. No visib le external auditory canal or middle ear fluid. OTHER: Visualized soft tissues of the face are unremarkable. No focal significant nasal cavity abnor mality appreciated. IMPRESSION: No acute orbital fractures. Mild left preseptal soft tissue edema. No evidence of orbital fat strandi ng or globe/orbit injury. Report Dictated By: Benjamin Antoine at 08/23/2018 6:42 PM Report E-Signed By: Benjamin Antoine at 08/23/2018 6:46 PM WSN:[id number]
[2018-08-23 19:55] VITALS: BP 131/83
[2018-08-23] MEDS ORDERED: DIAZEPAM 10 MG TAB PO PRN ×2 (20:50)
[2018-08-23] MEDS ORDERED: INFLUENZA VIRUS VAC 0.5ML SYR IM ONLY ONE (20:50)
--- NOTE | 2018-08-23 20:56 | History & Physical ---
History of Present Illness Chief Complaint Alcohol intoxication History of Present Illness This patient presented to the emergency room after his mother called EMS for alcohol intoxication. He has a history of multiple admission for alcohol rel ated disorders and withdrawal seizures. His last admission was in May of this year. He reports being sober since that admission until his left him several weeks ago. History Problems: (1) Alcohol abuse Status: Chronic (2) Alcohol withdrawal seizure Status: Resolved (3) Alcoholic hepatitis Status: Chronic (4) History of oral surgery Status: Chronic Home Meds Discontinued Scripts Thiamine Hcl (VITAMIN B-1) 100 Mg Tablet, 100 MG PO QDAY, #30 TAB Prov:VÍCTOR GAGE PATTERN DESIGNER 06/04/18 Folic Acid (FOLIC ACID) 1 Mg Tablet, 1 MG PO QDAY, #30 TAB Prov:TOOVÍCTOR Quinonez PATTERN DESIGNER 06/04/18 Allergies: Coded Allergies: No Known Drug Allergies (Unverified , 08/16/18) Patient History: Cardiac disorder FATHER (HTN) FH: atrial fibrillation MOTHER Hx Smoking: Yes Smoking Status: Current: Every Day Smoker, Former Smoker Exposure to Second Hand Smoke?: Yes Caffeine Intake: Coffee, Tea Caffeine/Cups Per Day: 4-6 Hx Alcohol Use: Yes Hx Substance Use Disorder: Yes (No social drug use now) Social Drug Use: Former Social Drugs: Marijuana Review of Systems All Systems Reviewed/Normal: Yes Exam Vital Signs Vital Signs Date Time Temp Pulse Resp B/P (MAP) Pulse Ox O2 Delivery O2 Flow Rate FiO2 08/23/18 20:33 91 Nasal Cannula 0.5 08/23/18 19:55 98.9 97 20 131/83 (99) Neuro: No Gross deficits Eyes: PERRLA Cardiovascular: Regular Rate and Rhythm Respiratory: Clear to Auscultation GI: Abd Soft and Non-Tender Extremities: No Edema Integumentary: No Jaundice Medical Decision Making Data Points Result Diagram: 08/23/18 1551 08/23/18 1551 Assessment and Plan Problems: (1) Alcohol intoxication Status: Acute Assessment & Plan: He did present with a blood alcohol level of 484. He has been placed on CIWA protocol and thiamine. (2) Orbital cellulitis, left Status: Acute Assessment & Plan: He has an recent laceration of the left eye that is scarred over, but there is surrounding erythema. He has been placed on Ancef. Venous Thromboembolism Antithrombotics Is Pt On Any Antithrombotics?: No Exam Sepsis Risk: No Definite Risk CARLOS KANG DO Aug 23, 2018 20:56
[2018-08-23 22:36] VITALS: BP 109/76
[2018-08-23] MEDS ORDERED: PROMETHAZINE 25 MG/ML 1 ML AMP IVP PRN (22:40)
[2018-08-23] MEDS ORDERED: LORazepam 2 MG/ML VIAL IVP PRN (22:40)
[2018-08-24] MEDS ORDERED: NICOTINE INH SYSTEM 10 MG/INH INH PRN (00:05)
[2018-08-24] MEDS ORDERED: NICOTINE CARTRIDGE 1 EA PO PRN (00:05)
[2018-08-24] MEDS ORDERED: NS(*) 0.9% 250 ML BAG 250 ML ONE (00:28)
[2018-08-24] MEDS: ceFAZolin 1 GM VIAL IVP SCH ×2 (01:00→09:40)
[2018-08-24 02:18] VITALS: BP 111/71
[2018-08-24 08:08] VITALS: BP 114/72
[2018-08-24] MEDS ORDERED: THIAMINE HCL 200 MG/2 ML INJ IVP SCH (09:00)
[2018-08-24] MEDS ORDERED: FOLIC ACID 1 MG TAB PO SCH (09:00)
--- NOTE | 2018-08-24 09:48 | Hospitalist Progress Note ---
Subjective Progress Notes Subjective The patient states he has been going to AA. He wants to try and become sober again. He says he was successful at maintaining sobriety for a time after his admission in May. Life stressors caused him to start drinking again. He recently fell down the stairs. Physical Exam Vital Signs Date Time Temp Pulse Resp B/P (MAP) Pulse Ox O2 Delivery O2 Flow Rate FiO2 08/24/18 08:08 98.7 105 18 114/72 (86) 91 Nasal Cannula 2.0 Intake and Output 08/24/18 07:02 Intake Total 500 ml Output Total 1700 ml Balance -1200 ml Intake Oral 500 ml Output Emesis 1700 ml # Voids 1 # Emeses 2 General Appearance: Alert, Awake, Other (Tremulous.) Eyes: PERRLA, Other (L eye with small superficial laceration lower eyelid. Resolving ecchymosis (purplish-red) surrounds the eye with some swelling as well. No drainage from the wound. Will DC antibiotics.) Cardiovascular: Regular Rate and Rhythm Respiratory: Clear to Auscultation GI: Soft and Non-Tender Extremities: Warm, Perfused, Other (No edema.) Integumentary: Other (Scattered abrasions, bruises. See description above regarding L eye.) Psych: Appropriate Mood & Affect Result Diagram: 08/23/18 1551 08/23/18 1551 Assessment and Plan Problems: (1) Alcohol intoxication Status: Acute Assessment & Plan: He did present with a blood alcohol level of 484. He has been placed on CIWA protocol and thiamine. He is quite tremulous today. (2) Alcohol withdrawal syndrome Status: Acute Assessment & Plan: He appears to be having some withdrawal this am. He is on CIWA with seizure precautions. He has had alcohol withdrawal seizures in the past. (3) Orbital cellulitis, left Status: Acute Assessment & Plan: He has a recent laceration of the left eye that is open (about 1 cm.) but appears to be healing. There is some surrounding ecchymosis which is currently a purplish-red. He was placed on Ancef for possible infection but this appears to be resolving ecchymosis. The wound is not draining at all. Time Spent on Plan of Care: < 30 min Exam Sepsis Risk: No Definite Risk BRITTANY ANDERSEN MD Aug 24, 2018 09:48
[2018-08-24 11:15] VITALS: BP 129/83
[2018-08-24 15:06] VITALS: BP 107/79
--- NOTE | 2018-08-24 15:39 | Hospitalist Depart ---
Discharge Summary Reason for Hosp/Final Diag: (1) Alcohol intoxication Status: Acute Hospital Course & Plan: He did present with a blood alcohol level of 484. He was placed on CIWA protocol and thiamine. He is no longer intoxicated and will transfer to [facility]. (2) Alcohol withdrawal syndrome Status: Acute Hospital Course & Plan: He appears to be having some withdrawal this am. He is on CIWA. (3) Orbital cellulitis, left Status: Acute Hospital Course & Plan: He has a recent laceration of the left eye that is slightly open (about 1 cm.) but appears to be healing. There is some surrounding ecchymosis which is currently a purplish-red. He was placed on Ancef for possible infection but this appears to be resolving ecchymosis. The wound is not draining at all. Departure Weight (Pounds): 139 Result Diagram: 08/23/18 1551 08/23/18 1551 Condition: Improved Discharge: [facility] Time Spent: < 30 min Discharge Instructions Home Meds No Active Prescriptions or Reported Meds Diet: Regular Activity: As Tolerated Venous Thromboembolism Antithrombotics Is Pt On Any Antithrombotics?: No BRITTANY ANDERSEN MD Aug 24, 2018 15:39
--- NOTE | 2018-08-24 18:45 | NUR ---
Report given to Caty RN on [facility], tech will be here to get patient for transfer
== END 2018-08-24 20:03 | DRG 897 ==
LOC: ER 16:03 → MED 19:30
PROVIDERS: ADMIT Family Medicine; ATTEND Family Medicine
DX: F10.230 Alcohol dependence with withdrawal, uncomplicated (principal); H05.012 Cellulitis of left orbit; F10.220 Alcohol dependence with intoxication, uncomplicated; S01.81XA Laceration without foreign body of other part of head, initial encounter; F17.210 Nicotine dependence, cigarettes, uncomplicated; S00.81XA Abrasion of other part of head, initial encounter; Y90.8 Blood alcohol level of 240 mg/100 ml or more
CPT/HCPCS: 70450; 70481; 80320; 80329; 82040; 82247; 82310; 82374; 82435; 82550; 82565; 82947; 83735; 84075; 84132; 84155; 84295; 84443; 84450; 84460; 84520; 85025; 96374; 99284; J0690; J2060; J3411; J7050; Q9967

== ENCOUNTER → 2018-08-23 | Outpatient (CLI) | payer SELFPAY ==
[2018-06-02 16:31] VITALS: BMI 24.8
[~2018-08-23] MED LIST changes: +MULT1CAP59 PO; +NIC10R INH; +NICOTROL CARTRIDGE PO; +VITA-175 PO
== END ==
LOC: AMB 14:56
PROVIDERS: ATTEND Nurse Practitioner
DX: H57.12 Ocular pain, left eye (principal); T51.91XA Toxic effect of unspecified alcohol, accidental (unintentional), initial encounter
CPT/HCPCS: A0425; A0429

== ENCOUNTER 2018-08-24 20:03 | Inpatient (IN) | payer SELFPAY ==
[2018-06-02 16:31] VITALS: Ht 165.1 cm; Wt 62.1 kg
[~2018-08-24] VITALS: Ht 165.1 cm; Wt 62.1 kg
[2018-08-24 20:20] VITALS: BP 129/86
[2018-08-24] MEDS ORDERED: MAG HYD/AL HYD/SIMETH 30ML UDC PO PRN (20:30)
[2018-08-24] MEDS: DIAZEPAM 10 MG TAB PO PRN (22:05)
[2018-08-25 04:00] VITALS: BP 128/80
[2018-08-25] MEDS: DIAZEPAM 10 MG TAB PO PRN (05:53)
[2018-08-25 05:55] VITALS: BP 122/88
[2018-08-25 06:09] LABS: PLATELET COUNT, AUTOMATED 73 K/uL (150-450)
--- NOTE | 2018-08-25 06:12 | EKG ---
[place]AC[place] [facility] [place] NAME: GARRY BRINK : [id number] MR: [id number] V: [id number] EXAM DATE: ORDERING PHYSICIAN: HERIBERTO DUNNE TECHNOLOGIST: WILLA Test Reason : HX OF SEIZURE Blood Pressure : / mmHG Vent. Rate : 077 BPM Atrial Rate : 077 BPM P-R Int : 112 ms QRS Dur : 084 ms QT Int : 410 ms P-R-T Axes : 064 077 073 degrees QTc Int : 463 ms Sinus rhythm Nonspecific T wave findings anteriorly Confirmed by LORENA ANDERSEN ([id number]) on 08/25/2018 12:52:33 PM Referred By: UZAIR Confirmed By:LORENA ANDERSEN
[2018-08-25 08:20] VITALS: BP 120/91
[2018-08-25] MEDS: MULTIVITAMINS TAB PO SCH (08:21)
[2018-08-25] MEDS: THIAMINE HCL 100 MG TAB PO SCH (08:21)
[2018-08-25] MEDS: FOLIC ACID 1 MG TAB PO SCH (08:21)
[2018-08-25 12:05] VITALS: BP 121/96
[2018-08-25] MEDS: LORazepam 1 MG TAB PO PRN ×3 (13:13→21:59)
[2018-08-25] MEDS ORDERED: NICOTINE CARTRIDGE 1 EA PO PRN (13:50)
[2018-08-25] MEDS: NICOTINE INH SYSTEM 10 MG/INH INH PRN (14:04)
--- NOTE | 2018-08-25 14:32 | SCHAAF H&P ---
DATE OF ADMISSION: August 24, 2018 ATTENDING PHYSICIAN Benjamin Abernathy MD Patient was seen in the a.m. of August 25, 2018 at approximately 1000 hours for note concerning this dictation. PRESENTING PROBLEM/CHIEF COMPLAINT "I want to quit drinking." HISTORY OF PRESENT ILLNESS This is a fairly well-known 37-year-old male who was last seen on the medical floor for alcohol withdrawal from June 01 to June 04, 2018. Prior to that, patient was admitted to the Behavioral Health Unit here under similar circumstances from August 24 to August 28, 2016. Patient returns after having relapsed and continued binging. Patient reports this is part in that he is worried about his health and that his significant other, dayan of 8 years, has left over being upset by his continued drinking. Patient reports he wants to quit drinking as he wants his significant other to reconsider their relationship and he does not want to hurt family members. Patient adamantly denying any other symptoms of psychiatric concern. MENTAL HEALTH HISTORY Patient again has been an inpatient here in the Behavioral Health Unit in 2016 and was a medical floor detox in May 2018. Prior to that, patient has had five or six admissions total here for alcohol detoxication. Patient has no history of suicide attempts. Patient not following up with any outpatient treatment right now. He has went to AA in the past. FAMILY PSYCHIATRIC HISTORY Significant for a father who suffers from alcoholism as well as his paternal grandfather. Patient's mother has suffered from depression in the past. PAST MEDICAL HISTORY Significant for complications resulting from chronic alcoholism including at times thrombocytopenia, fatty liver disease versus hepatic cirrhosis and generalized weakness. SOCIAL HISTORY Patient was born in [place] in [place]. Parents were at the time of his , when he was age 11. Patient has one half- sister. He is a high school graduate. Patient obtained an Associate's Degree in [email or web address] management. Patient one week ago was working at [employer]. He may not have that job anymore secondary to drinking. Currently living with his fiance here in [place] and she has recently left him. They had been together up to 8 years. He previously was supported through a trust fund through his father's connection but states that at a certain age he was cut off from that. LEGAL HISTORY Significant for DUIs x4; the last one believed to be in 2014. He denies felonies. Patient denied any history of physical, emotional or sexual abuse. PHYSICAL EXAMINATION Please see emergency room note and medical floor notes, notable for intoxicated 37-year old male. At time of admission, patient notably was on the medical floor for one day prior to transfer to [facility]. This is due to patient's historically high blood alcohol contents, noted to be 484 at the time of admission. Vital signs at the time of admission to [facility]: Temperature 99.6, pulse 69, respiratory rate 13, blood pressure 129/86 and pulse oximetry 94% on room air. LABORATORY DATA CBC on August 25, 2018 notable for MCV and MCH elevated at 101.1 and 35.2, respectively. Platelet count low at 73. Chemistry panel notable for total bilirubin rising at 1.9 and elevated AST 241, ALT 124. Total creatinine kinase was 462. No toxicology screen was done. TSH 2.08 at time of admission. Blood alcohol contents 484 and critically high at time of admission to medical floor. MENTAL STATUS EXAMINATION GENERAL APPEARANCE, BEHAVIOR AND ATTITUDE: This is a somewhat disheveled appearing 37-year old male interacting well with this provider and other treatment team staff. Patient did indicate a memory of some trembling and continuing some psychomotor agitation, likely related to uncompleted alcohol withdrawal ongoing. Patient briefly tearful at times when talking about the absence of his fiance secondary to his alcohol consumption. SPEECH: Largely within normal limits. Regular rate, rhythm, volume and tone. MOOD: Described as upset over his continued use of alcohol. AFFECT: Minimally constricted at times and mood-congruent. THOUGHT PROCESSES: Goal-directed, logical. Patient reporting he does not want to consume alcohol any longer. No loose associations or flight of ideas. THOUGHT CONTENT: Free of auditory or visual hallucinations, ideas of reference, thought broadcastings, delusions, obsessions or compulsions. The patient adamantly denying suicidal or homicidal ideations. SENSORIUM: Clear. COGNITION: Alert and oriented to person, place, time and situation. MEMORY: Immediate, recent and remote estimated intact. INTELLIGENCE: Average, based on interview. INSIGHT AND JUDGMENT: Thought to be grossly intact in the absence of alcohol use. ASSESSMENT This is a pleasant 37-year-old male suffering from longstanding alcohol use disorder. Patient is a transfer from the medical floor, where he was initially admitted for critically high blood alcohol level. We will continue to treat alcohol withdrawal to completion and work on various modalities to ensure sobriety upon departure. DIAGNOSES (PER DSM-5) 1. Alcohol withdrawal. 2. Alcohol use disorder, severe. 3. Stressors associated with severe alcohol use including break-up of a long- term relationship, financial stressors and employment stressors. PLAN 1. Admit to the unit. 2. Necessary precautions will be implemented. 3. The patient will participate in individual and group therapy. 4. Medications will be adjusted and titrated accordingly. 5. Collateral information to be obtained as necessary. 6. Estimated length of stay 3 to 5 days. 7. We will switch to Ativan via [facility] protocol at this time as patient seems to be sensitive to Valium with elevated bilirubin coming on after the administration of such. MTDD
[2018-08-25 21:36] VITALS: BP 116/71
[2018-08-26 02:51] VITALS: BP 100/76
[2018-08-26] MEDS: LORazepam 1 MG TAB PO PRN ×5 (03:06→20:36)
[2018-08-26 08:00] VITALS: BP 117/81
[2018-08-26] MEDS: MULTIVITAMINS TAB PO SCH (08:10)
[2018-08-26] MEDS: THIAMINE HCL 100 MG TAB PO SCH (08:10)
[2018-08-26] MEDS: FOLIC ACID 1 MG TAB PO SCH (08:10)
[2018-08-26 11:45] VITALS: BP 112/91
--- NOTE | 2018-08-26 12:33 | BHS Progress Note ---
[facility] - Subjective Progress Notes Subjective Patient very polite and cooperative on the unit, withdrawal ongoing, will treat to completion, and work on appropriate outpatient plans to continue sobriety. Labs in AM, Patient verbalizes a desire to stop alcohol. Suicidal Ideation: None Homicidal Ideation: None [facility] - Objective Physical Exam Vital Signs Vital Signs Date Time Temp Pulse Resp B/P (MAP) Pulse Ox O2 Delivery O2 Flow Rate FiO2 08/26/18 08:00 98.3 115 16 117/81 (93) 96 Room Air Muscle Strength and Tone: WNL Gait and Station: Steady [facility] Medications Reviewed: Side Effects, Benefits of Medication, Risks Allergies Reviewed: Yes Mental Status Exam General Appearance: Well Groomed, Good Eye Contact, Cooperative, Polite, Good Interaction, Psychomotor Agitation (minimal); No Bizarre Mannerisms, No Tics Speech: Clear, Spontaneous, Normal Rate, Normal Rhythm, Normal Volume, Normal Tone Mood: Euthymic Affect: Full and Appropriate, Calm; No Withdrawn Thought Process: Organized, Logical, Goal Directed; No Loose Associations, No Flight of Ideas Thought Content: No Suicidal Ideation, No Homicidal Ideation, No Delusions, No Auditory Halllucinations, No Visual Hallucinations, No Thought Broadcasting, No Ideas of Reference, No Obsessions, No Compulsions Sensorium: Clear Cognition: Alert & Oriented-Person, Alert & Oriented-Place, Alert & Oriented-Time, Olipa-[id number]-[id number] Memory: Immediate, Recent, Remote Intelligence: Average Insight Judgment: Fair (improving ) Result Diagram: 08/25/18 0557 08/25/18 0557 [facility] Assessment and Plan Dtml-[id number] Encounter Date: Aug 26, 2018 Tlev-az-[id number] Encounter Time: 11:30 [facility] Plan: Necessary Precautions, Individual/Group Therapy, Admin/Titrate Meds, Educate Patient Tobacco Medications: Started Multpiple Antipsychotics Used: No Problems: (1) Alcohol withdrawal Status: Acute (2) Alcohol use disorder, severe, in controlled environment Status: Chronic Condition 1. continue treatment. 2. look into outpatient plans for sobriety. Problem Qualifiers (1) Alcohol withdrawal: Complication of substance-induced condition: uncomplicated Qualified Codes: F10.230 - Alcohol dependence with withdrawal, uncomplicated SAMANTHA ZEPEDA MD Aug 26, 2018 12:33
[2018-08-26] MEDS: NICOTINE INH SYSTEM 10 MG/INH INH PRN (14:40)
[2018-08-26 15:45] VITALS: BP 122/81
[2018-08-26 20:50] VITALS: BP 106/70
[2018-08-27 05:47] VITALS: BP 105/71
[2018-08-27 07:02] LABS: PLATELET COUNT, AUTOMATED 102 K/uL (150-450)
[2018-08-27] MEDS: MULTIVITAMINS TAB PO SCH (08:19)
[2018-08-27] MEDS: FOLIC ACID 1 MG TAB PO SCH (08:19)
[2018-08-27] MEDS: THIAMINE HCL 100 MG TAB PO SCH (08:19)
[2018-08-27] MEDS ORDERED: NICOTROL CARTRIDGE PO (09:33)
[2018-08-27] MEDS ORDERED: NIC10R INH (09:33)
[2018-08-27] MEDS ORDERED: VITA-175 PO (09:34)
[2018-08-27] MEDS ORDERED: MULT1CAP59 PO (09:36)
--- NOTE | 2018-08-29 20:37 | SCHAAF DISCHARGE ---
DATE OF ADMISSION: August 24, 2018 DATE OF DISCHARGE: August 27, 2018 ATTENDING PHYSICIAN Benjamin Abernathy MD Patient was seen approximately 0830 hours in the a.m. of 27 August 2018 for note concerning this dictation. FINAL DIAGNOSES 1. Alcohol use disorder, severe. 2. Alcohol withdrawal, considered completed. 3. Stressors associated with chronic alcohol use including relationship breakup, financial and employment stressors, and medical stressors as well. 4. Patient receiving some support from his mother. REASON FOR ADMISSION This is a very pleasant 37-year-old male who suffers from long-term alcohol dependence with multiple admissions to Behavioral Health and the Emergency Room for alcohol-related problems. Patient was admitted initially, and due to history of significant seizures and withdrawal, was initially placed on the medical floor for observation. The patient was then the next day brought to the Behavioral Health Unit for continued management of alcohol withdrawal. This was treated to completion with lorazepam per [facility] protocol due to concerns of hepatic function. Patient did remain, again, calm and cooperative. Patient understands the problems alcohol use creates in his life. Patient did indicate a desire to abstain. Patient agreed to follow up with [facility] and obtain a sponsor as well, and abstain from alcohol in the future. No parasuicidal behaviors were noted on the unit. Patient denying any other concerns, and patient was discharged to home. PHYSICAL EXAMINATION Please see emergency room note. Notable for: GENERAL: Thin 37-year-old male with significant alcohol use disorder. Apparently, the patient was in the Emergency Room initially stating that he was here only to look at his eye. Patient noted to have a critically high blood alcohol level at time of admission, but patient agreeable to admission. VITAL SIGNS: Vital signs at the time of admission included temperature 98.9, pulse 97, respiratory rate 20, blood pressure 131/83, and pulse oximetry 87% on room air. At time of discharge, vital signs included temperature 98.4, pulse 76, respiratory rate 15, blood pressure 105/71, and pulse oximetry 95% on room air. LABORATORY DATA CBC on 08/23/2018 indicated white blood cells slightly low at 4.4, with MCV and MCH elevated at 100.3 and 34.7. Platelet count notably low at 107 as well. Chemistry panel notable initially upon admission for AST of 222 and an ALT of 120 with a normal total bilirubin. Patient notably having a slightly elevated creatine kinase at 300 upon admission as well. Toxicology screen was notable for a critically high serum alcohol of 44. Urine drug screen was not done. Labs were redrawn on 08/27/2018, and CBC remained largely unchanged. CMP, however, was notable for a total bilirubin then of 1.0, which had fallen from a previous level of 1.9 drawn in between initial lab work. AST and ALT remained elevated at 337 and 230 respectively, and total creatine kinase was also falling from a previous high of 462 now to 364 at time of discharge. MENTAL STATUS EXAMINATION GENERAL APPEARANCE, BEHAVIOR, AND ATTITUDE: This is a thin 37-year-old male, somewhat ashen appearance, and no visible icterus. During discharge interview, patient very calm, cooperative, interacting well with this provider and other treatment team staff. No periods of tearfulness. No bizarre mannerisms or tics. Making good eye contact. SPEECH: Within normal limits. Regular rate, rhythm, volume, and tone. MOOD: Described as good. AFFECT: Full at times and mood congruent. THOUGHT PROCESSES: Goal directed, logical. No loose associations or flight of ideas. THOUGHT CONTENT: Free of auditory or visual hallucinations, ideas of reference, thought broadcasting, delusions, obsessions, compulsions. Patient not having any suicidal or homicidal ideation on the unit. SENSORIUM: Clear. COGNITION: Alert and oriented to person, place, time, and situation. MEMORY: Immediate, recent, and remote was estimated intact. INTELLIGENCE: Average based on interview. INSIGHT AND JUDGMENT: Considered grossly intact in the absence of alcohol or other substance use. However, patient does suffer from very severe chronic alcohol use disorder and, unfortunately, has a very high likelihood of relapse. RESULTS OF TESTING Please see electronic data. Imaging: Orbit to rule out orbital fracture was done, which was unremarkable, and patient did receive antibiotic on initial admission to medical floor for mild cellulitis. Laboratory data: See above. CONSULTATIONS None. TREATMENT Patient received medications, participated in individual and group therapy. HOSPITAL COURSE Patient was initially started on diazepam for alcohol withdrawal. This was later switched to Ativan as patient's bilirubin was known to increase. Patient continued to improve. Folic acid and thiamine were also given. Alcohol withdrawal treated to completion. Patient agreed to follow up and abstain from alcohol and very cooperative throughout his care. He was an active participant. CONDITION OF PATIENT ON DISCHARGE Stable. Considered a minimal risk to himself or others in the absence of alcohol use. DISPOSITION Patient discharged to home. He agreed to follow up at [facility]. Patient refused to consider rehab at this time. He was encouraged strongly to go to and obtain a sponsor and abstain from all alcohol use. Crisis line was given should symptoms return. Unfortunately, this patient's prognosis remains overall rather poor as patient has a very difficult time abstaining from alcohol for any length of time. He certainly would potentially benefit from a residential rehab setting. DISCHARGE MEDICATIONS 1. Multivitamin with minerals daily. 2. Vitamin B complex daily. 3. Patient encouraged to stop nicotine use as well and continue [id number] nicotine replacement therapy. PLAN Crisis line was given should symptoms return. Risks, benefits, and alternatives of the above discharge plan were discussed. Informed consent was given to proceed with above discharge plan by this competent patient. MOHAN
== END 2018-08-27 09:55 | disposition home or self-care (01) | DRG 897 ==
LOC: BHS 20:03
PROVIDERS: ADMIT Nurse Practitioner Psychiatric/Mental Health; ATTEND Nurse Practitioner Psychiatric/Mental Health
DX: F10.239 Alcohol dependence with withdrawal, unspecified (principal); Z63.79 Other stressful life events affecting family and household
CPT/HCPCS: 36415; 82040; 82247; 82310; 82374; 82435; 82550; 82565; 82947; 83735; 84075; 84132; 84155; 84295; 84450; 84460; 84520; 85025; 93005